=== PATIENT | female | born 1980 | race Caucasian/White ===

== ENCOUNTER 2022-01-04 12:43 | Outpatient (CLI) | payer BC, SELFPAY ==
[2022-01-04 09:27] LABS: CREATININE 0.7 mg/dL (0.55-1.02); Estimated GFR 109.98 (mL/min/1.73m2)
== END 2022-01-04 12:44 | disposition home or self-care (01) ==
LOC: LBO 12:43
PROVIDERS: Visit Provider Preventive Medicine Undersea and Hyperbaric Medicine
DX: C44.202 Unspecified malignant neoplasm of skin of right ear and external auricular canal (principal)
CPT/HCPCS: 36415; 82565